=== PATIENT | female | born 1995 | race Caucasian/White ===

== ENCOUNTER 2019-08-01 16:14 | Emergency (ER) | payer OTHER ==
[~2019-08-01] VITALS: Ht 154.9 cm; Wt 59.0 kg
[2019-08-01 16:28] VITALS: BP_SYST 108
[2019-08-01 17:04] LABS: BASOPHILS % (AUTO) 0.5 % (0.0-2.0); EOSINOPHILS # (AUTO) 0.1 K/uL (0.0-0.4); EOSINOPHILS % (AUTO) 0.6 % (0.0-4.0); HEMATOCRIT 39.9 % (36-48); HEMOGLOBIN 13.6 g/dL (12.0-16.0); LYMPHOCYTES # (AUTO) 2.5 K/uL (1.0-5.5); LYMPHOCYTES % (AUTO) 30.7 % (20.5-51.5); MEAN CORPUSCULAR HEMOGLOBIN 32 pg (27-31); MEAN CORPUSCULAR HGB CONC 34 % (32-36); MEAN CORPUSCULAR VOLUME 94 fL (79.0-98.0); MONOCYTES # (AUTO) 0.6 K/uL (0.0-1.0); MONOCYTES % (AUTO) 7.3 % (1.7-9.3); NEUTROPHILS % (AUTO) 60.9 % (40.0-70.0); PLATELET COUNT (AUTO) 194 K/uL (130-430); RED BLOOD CELL COUNT(AUTO) 4.24 MIL/uL (4.2-6.2); RED CELL DISTRIBUTION WIDTH 12.1 % (9.0-15.0); WHITE BLOOD COUNT (AUTO) 8.3 K/uL (4.8-10.8)
[2019-08-01 17:12] LABS: BILIRUBIN,URINE NEGATIVE (NEGATIVE); CLARITY/URINE CLEAR (CLEAR); COLOR,URINE YELLOW (YELLOW); GLUCOSE,URINE NEGATIVE (NEGATIVE); KETONES,URINE NEGATIVE (NEGATIVE); LEUKOCYTE ESTERASE ,URINE NEGATIVE (NEGATIVE); NITRITE, URINE NEGATIVE (NEGATIVE); PROTEIN URINE NEGATIVE (NEGATIVE); UROBILINOGEN,URINE 0.2 (0.2-1.0)
[2019-08-01 17:26] LABS: BLOOD, URINE TRACE (NEGATIVE)
[2019-08-01 17:28] LABS: CALCIUM 8.5 mg/dL (8.4-11.0); CREATININE 0.65 mg/dL (0.55-1.30); POTASSIUM 4.2 mmol/L (3.5-5.1)
[2019-08-01 17:42] LABS: BACTERIA,URINE FEW /HPF (None Seen); MUCUS,URINE None Seen /LPF (None Seen); RBC,URINE 0-3 /HPF (0-3); WBC,URINE 0-3 /HPF (0-3)
[2019-08-01 17:52] LABS: ALBUMIN 3.4 g/dL (3.4-4.8); TOTAL BILIRUBIN 0.3 mg/dL (0.0-1.0)
[2019-08-01] MEDS ORDERED: RHO(D) IMMUNE GLOBULIN/MALTOSE 1500 UNITS/1.3 ML (WINHRO) INJ ONE (19:00)
[2019-08-01 20:30] VITALS: BP_SYST 108
== END 2019-08-01 20:30 | disposition home or self-care (01) ==
LOC: SED 16:14
DX: O20.0 Threatened abortion (principal); Z3A.01 Less than 8 weeks gestation of pregnancy
CPT/HCPCS: 36415; 76801; 76817; 80053; 81000; 81025; 84702; 85025; 86900; 86901; 96372; 99284; J2790; J2792

== ENCOUNTER 2019-08-03 10:30 | Emergency (ER) | payer OTHER ==
[~2019-08-03] VITALS: Ht 154.9 cm; Wt 59.0 kg
[2019-08-03 10:35] VITALS: BP_SYST 115
--- NOTE | 2019-08-03 10:35 | NUR ---
BROUGHT BACK TO BED #8 AND TRIAGED. REPORT GIVEN TO MARCO
--- NOTE | 2019-08-03 10:45 | NUR ---
DR MAN AT BEDSIDE FOR EVALUATION
--- NOTE | 2019-08-03 12:10 | NUR ---
Jason leung in [facility] - 08/03/19 at [address] MAN AT [facility] FOR EVALUATION
--- NOTE | 2019-08-03 12:10 | NUR ---
DR MAN AT BEDSIDE TO SPEAK WITH PT RE: LAB RESULTS
[2019-08-03 12:37] VITALS: BP_SYST 117
--- NOTE | 2019-08-03 12:38 | NUR ---
Patient given written and verbal discharge instructions and verbalizes understanding. ER MD discussed with patient the results and treatment provided. Patient in stable condition. ID arm band removed. Rx of NONE given. Patient educated on pain management and to follow up with PMD. Pain Scale 0/10. Opportunity for questions provided and answered. Medication side effect fact sheet provided.
== END 2019-08-03 12:37 | disposition home or self-care (01) ==
LOC: SED 10:30
DX: O20.0 Threatened abortion (principal); Z3A.01 Less than 8 weeks gestation of pregnancy
CPT/HCPCS: 36415; 84702-TC; 99283

== ENCOUNTER 2020-02-22 17:26 | Outpatient (CLI) | payer OTHER, SELFPAY | END 2020-02-22 20:52 | disposition home or self-care (01) | LOC: SLB 17:26 | PROVIDERS: ATTEND Specialist | DX: Z11.59 Encounter for screening for other viral diseases (principal) | CPT/HCPCS: C9803; U0003 ==

== ENCOUNTER 2020-03-04 05:15 | Inpatient (IN) | payer OTHER, SELFPAY ==
[~2020-03-04] VITALS: Ht 154.9 cm; Wt 74.4 kg
[2020-03-04] MEDS ORDERED: OXYTOCIN/0.9 % SODIUM CHLORIDE 1,000 ML IV SCH (05:36)
[2020-03-04] MEDS ORDERED: LR 1,000 ML IV ONE (05:36)
[2020-03-04 06:11] LABS: BASOPHILS # (AUTO) 0.1 K/uL (0.0-0.2); BASOPHILS % (AUTO) 0.6 % (0.0-2.0); EOSINOPHILS % (AUTO) 0.1 % (0.0-4.0); HEMATOCRIT 37.4 % (36-48); HEMOGLOBIN 12.6 g/dL (12.0-16.0); LYMPHOCYTES # (AUTO) 1.8 K/uL (1.0-5.5); LYMPHOCYTES % (AUTO) 16.9 % (20.5-51.5); MEAN CORPUSCULAR HEMOGLOBIN 32 pg (27-31); MEAN CORPUSCULAR HGB CONC 34 % (32-36); MEAN CORPUSCULAR VOLUME 95 fL (79.0-98.0); MONOCYTES # (AUTO) 0.4 K/uL (0.0-1.0); MONOCYTES % (AUTO) 4.1 % (1.7-9.3); NEUTROPHILS # (AUTO) 8.3 K/uL (1.8-7.7); NEUTROPHILS % (AUTO) 78.3 % (40.0-70.0); PLATELET COUNT (AUTO) 151 K/uL (130-430); RED BLOOD CELL COUNT(AUTO) 3.94 MIL/uL (4.2-6.2); RED CELL DISTRIBUTION WIDTH 12.5 % (9.0-15.0); WHITE BLOOD COUNT (AUTO) 10.6 K/uL (4.8-10.8)
[2020-03-04] MEDS: LR 1,000 ML IV SCH ×2 (06:30→09:07)
[2020-03-04] MEDS ORDERED: fentaNYL CITRATE/PF 100 MCG/2 ML AMP ONE (06:31)
[2020-03-04] MEDS ORDERED: ROPIVACAINE HCL/PF 0.2% 200 ML ONE (06:31)
[2020-03-04 06:32] VITALS: BP_SYST 108
[2020-03-04] MEDS ORDERED: FENT2mCg/mL-ROPIVA0.2%/NS EPID 200 ML EP SCH (07:00)
[2020-03-04] MEDS ORDERED: NALOXONE HCL 0.4 MG/ML AMP (NARCAN) IVP PRN (07:00)
[2020-03-04] MEDS ORDERED: DIPHENHYDRAMINE INJ 50 MG/ML VIAL IVP PRN (07:00)
[2020-03-04] MEDS ORDERED: ONDANSETRON HCL 4 MG/2 ML VIAL IVP PRN (07:00)
[2020-03-04] MEDS ORDERED: AMPICILLIN SODIUM 2 GM in NS 100 ML IV ONE (09:00)
[2020-03-04] MEDS ORDERED: AMPICILLIN SODIUM 2 GM VIAL ONE (09:16)
[2020-03-04] MEDS ORDERED: AMPICILLIN SODIUM 1 GM in NS 50 ML IV SCH (13:00)
[2020-03-04] MEDS ORDERED: OXYTOCIN/0.9 % SODIUM CHLORIDE 1,000 ML IV ONE (17:12)
[2020-03-04] MEDS ORDERED: WITCH HAZEL LEAF 1 MED.PAD MED.PAD TP PRN (17:15)
[2020-03-04] MEDS ORDERED: DERMOPLAST SPRAY TP PRN (17:15)
[2020-03-04] MEDS ORDERED: DIPH-TET-PERTUS Vaccine 0.5 ML VIAL (ADACEL) I.M. PRN (17:15)
[2020-03-04] MEDS ORDERED: METHYLERGONOVINE MALEATE 0.2 MG TABLET PO PRN (17:15)
[2020-03-04] MEDS ORDERED: RHO(D) IMMUNE GLOBULIN/MALTOSE 1500 UNITS/1.3 ML (WINHRO) IM PRN (17:15)
[2020-03-04] MEDS ORDERED: MEASLES,MUMPS&RUBELLA VACC/PF 12500 UNIT/0.5 ML VIAL SUBQ PRN (17:15)
[2020-03-04] MEDS ORDERED: ANUSOL 1 EA SUPP.RECT (PREPARATION H) RC PRN (17:15)
[2020-03-04] MEDS ORDERED: LANOLIN 7 GM OINT. TP PRN (17:15)
[2020-03-04] MEDS ORDERED: HYDROCORTISONE 0.5%, 28.35 GM TOPICAL CREAM TP PRN (17:15)
[2020-03-04] MEDS: DOCUSATE SODIUM 100 MG CAPSULE PO PRN (17:28)
[2020-03-04] MEDS: IBUPROFEN 600 MG TABLET PO SCH ×2 (17:29→23:59)
[2020-03-04] MEDS: OXYCODONE/ACETAMINOPHEN 5-325 TABLET PO PRN ×2 (17:29→22:30)
[2020-03-04] MEDS ORDERED: TEMAZEPAM 15 MG CAPSULE PO PRN (21:00)
[2020-03-04] MEDS: SENNOSIDES/DOCUSATE SODIUM 1 TAB TABLET(SENOKOT-S) PO PRN (22:28)
[2020-03-05] MEDS: OXYCODONE/ACETAMINOPHEN 5-325 TABLET PO PRN ×4 (01:53→23:44)
[2020-03-05] MEDS: IBUPROFEN 600 MG TABLET PO SCH ×4 (06:34→23:43)
[2020-03-05 07:53] LABS: BASOPHILS % (AUTO) 0.1 % (0.0-2.0); EOSINOPHILS % (AUTO) 0.1 % (0.0-4.0); HEMATOCRIT 23.9 % (36-48); HEMOGLOBIN 7.9 g/dL (12.0-16.0); LYMPHOCYTES % (AUTO) 12.5 % (20.5-51.5); MEAN CORPUSCULAR HEMOGLOBIN 32 pg (27-31); MEAN CORPUSCULAR HGB CONC 33 % (32-36); MEAN CORPUSCULAR VOLUME 97 fL (79.0-98.0); MONOCYTES % (AUTO) 6.5 % (1.7-9.3); NEUTROPHILS # (AUTO) 12.9 K/uL (1.8-7.7); NEUTROPHILS % (AUTO) 80.8 % (40.0-70.0); PLATELET COUNT (AUTO) 130 K/uL (130-430); RED BLOOD CELL COUNT(AUTO) 2.48 MIL/uL (4.2-6.2); RED CELL DISTRIBUTION WIDTH 12.7 % (9.0-15.0); WHITE BLOOD COUNT (AUTO) 15.9 K/uL (4.8-10.8)
[2020-03-05] MEDS ORDERED: MINERAL OIL 30 ML UDC PO ONE (11:18)
[2020-03-05] MEDS ORDERED: OXYCODONE/ACETAMINOPHEN *10*mg/325 mg TABLET PO PRN (14:45)
[2020-03-05] MEDS: DOCUSATE SODIUM 100 MG CAPSULE PO PRN (16:08)
[2020-03-05] MEDS: SENNOSIDES/DOCUSATE SODIUM 1 TAB TABLET(SENOKOT-S) PO PRN (23:43)
[2020-03-06] MEDS: IBUPROFEN 600 MG TABLET PO SCH ×3 (05:07→17:34)
[2020-03-06] MEDS: DOCUSATE SODIUM 100 MG CAPSULE PO PRN ×2 (05:07→17:33)
[2020-03-06] MEDS: OXYCODONE/ACETAMINOPHEN *10*mg/325 mg TABLET PO PRN ×2 (10:49→17:34)
[2020-03-06] MEDS: SENNOSIDES/DOCUSATE SODIUM 1 TAB TABLET(SENOKOT-S) PO PRN (12:02)
[2020-03-06] MEDS ORDERED: MILK OF MAGNESIA 30 ML UDC PO ONE (13:15)
[2020-03-06 18:26] LABS: FTA-Ab (T PALLIDUM) Non Reactive (Non Reactive)
== END 2020-03-06 18:15 | disposition home or self-care (01) | DRG 768 ==
LOC: SPU 05:15
PROVIDERS: ADMIT Specialist; ATTEND Specialist
PROC: 10D07Z6 Extraction of Products of Conception, Vacuum, Via Natural or Artificial Opening (ICD-10-PCS; principal; 2020-03-04)
PROC: 0DQP0ZZ Repair Rectum, Open Approach (ICD-10-PCS; 2020-03-04)
PROC: 0W8NXZZ Division of Female Perineum, External Approach (ICD-10-PCS; 2020-03-04)
PROC: 10907ZC Drainage of Amniotic Fluid, Therapeutic from Products of Conception, Via Natural or Artificial Opening (ICD-10-PCS; 2020-03-04)
PROC: 3E0R3BZ Introduction of Anesthetic Agent into Spinal Canal, Percutaneous Approach (ICD-10-PCS; 2020-03-04)
PROC: 00HU33Z Insertion of Infusion Device into Spinal Canal, Percutaneous Approach (ICD-10-PCS; 2020-03-04)
DX: O70.3 Fourth degree perineal laceration during delivery (principal); Z37.0 Single live birth; Z3A.38 38 weeks gestation of pregnancy
CPT/HCPCS: 36415; 81002-TC; 85025; 86592; 86780; 86870; 86886; 86900; 86901; J0290; J2590; J3010; J7120